=== PATIENT | male | born 1960 | race Caucasian/White ===

== ENCOUNTER 2016-10-10 05:57 | Day surgery (SDC) | payer OTHER ==
[2016-09-26 14:14] VITALS: BMI 26.6
--- NOTE | 2016-10-09 10:44 | HP ---
Satellite [facility] - Chief Complaint Chief Complaint: left knee pain - Past Medical History Allergies/Adverse Reactions: Allergies Allergy/AdvReac Type Severity Reaction Status Date / Time No Known Allergies Allergy Verified 06/15/15 08:32 - Current Medications Current Medications: Home Medications Medication Instructions Recorded Ranitidine HCl [Zantac] 1 tab PO PRN PRN 06/14/15 Valacyclovir HCl [Valtrex -] 500 mg PO PRN 06/14/15 Satellite Physical Exam - Physical Examination General Appearance: Well Nourished, Well Developed, Alert & Oriented x3 ENT: Clear Lung: Normal air movement Heart: Regular rate & rhythm Extremities: Other (left knee- + swelling, + ttp laterally, decr rom, nvi xrays show severe djd laterally) Neurological: Intact, Alert, Oriented Satellite Impression/Plan - Impression/Plan Impression: left knee lateral djd Operative Procedure: left lateral geoffrey ukr Date to be Performed: 10/10/16
[2016-10-10] MEDS ORDERED: TRANEXAMIC ACID 1000 MG/10 ML VIAL IVPUSH ONE (06:27)
[2016-10-10] MEDS ORDERED: CEFAZOLIN 2 GM in DEXTROSE 5%-WATER - 50 ML IVPB ONE (06:27)
[2016-10-10] MEDS ORDERED: ROPIVICAINE 0.2%/MORPH PF/KETOROLAC - 51ML DISP.SYRINGE IA ONE ×2 (06:27→07:28)
[2016-10-10] MEDS: oxyCODONE HCL 10 MG SUSTAINED ACTING TABLET PO ONE ×2 (06:45→20:28)
[2016-10-10] MEDS: GABAPENTIN 300 MG CAPSULE (FP) PO ONE ×2 (06:45→20:28)
[2016-10-10] MEDS: CELECOXIB 200 MG CAPSULE PO ONE ×2 (06:45→20:28)
[2016-10-10] MEDS ORDERED: ROPIVACAINE HCL 0.5% 30ML VIAL ONE (06:53)
[2016-10-10] MEDS ORDERED: DEXAMETHASONE SOD PHOSPHATE/PF 10 MG/ML SDV ONE (06:53)
[2016-10-10] MEDS ORDERED: MIDAZOLAM HCL 2 MG/2 ML SINGLE DOSE VIAL ONE ×3 (06:53→07:37)
[2016-10-10] MEDS ORDERED: ceFAZolin SODIUM 1 GM VIAL ONE ×2 (07:17→07:37)
[2016-10-10] MEDS ORDERED: VANCOMYCIN 1,000 MG VIAL (RESTRICTED TO ID ONLY) ONE (07:18)
[2016-10-10] MEDS ORDERED: THROMBIN (BOVINE) 5,000 UNIT VIAL TP ONE (07:28)
[2016-10-10] MEDS ORDERED: GELATIN, ABSORBABLE 100 EACH SPONGE TP ONE (07:28)
[2016-10-10] MEDS ORDERED: SUCCINYLCHOLINE CHLORIDE 200 MG/10 ML VIAL ONE (07:37)
[2016-10-10] MEDS ORDERED: LIDOCAINE HCL/PF 2% SDV 5ML VIAL ONE (07:37)
[2016-10-10] MEDS ORDERED: PROPOFOL 20 ML ONE ×3 (07:37→09:02)
[2016-10-10] MEDS ORDERED: ePHEDrine SULFATE 50 MG/1 ML AMPULE ONE (07:37)
[2016-10-10] MEDS ORDERED: PHENYLEPHRINE HCL 10 MG/1 ML SINGLE DOSE VIAL ONE (07:37)
[2016-10-10] MEDS ORDERED: SODIUM CHLORIDE 0.9% P/F 10 ML VIAL IJ ONE (07:38)
[2016-10-10] MEDS ORDERED: TRANEXAMIC ACID 1000 MG/10 ML VIAL ONE (07:54)
[2016-10-10] MEDS ORDERED: ONDANSETRON 4 MG/2 ML VIAL IVPB PRN (09:56)
[2016-10-10] MEDS ORDERED: MAG HYDROX/AL HYDROX/SIMETH 30 ML UNIT-DOSE CUP PO PRN (09:56)
[2016-10-10] MEDS ORDERED: LACTATED RINGERS SOLUTION 1,000 ML IV SCH (10:00)
--- NOTE | 2016-10-10 10:03 | OP ---
Operative Note - Note: Operative Date: 10/10/16 (damion) Pre-Operative Diagnosis: left knee lateral djd Operation: left lateral geoffrey ukr Post-Operative Diagnosis: Same as Pre-op Surgeon: Jf Kebede Ward Nurse: Vernon Weaver) Anesthesiologist/COOK SAUCE: Ahmet Kelly Anesthesia: Spinal, Local Specimens Removed: bone fragments Estimated Blood Loss (mls): 100 Operative Report Dictated: Yes
[2016-10-10] MEDS ORDERED: oxyCODONE HCL 5 MG TABLET PO PRN (10:25)
[2016-10-10] MEDS: ACETAMINOPHEN 1000 MG/100 ML VIAL (NON FORMULARY) IVPB ONE ×2 (10:30→20:29)
[2016-10-10] MEDS: CEFAZOLIN 2 GM/D5W 50 ML IVPB SCH (16:01)
[2016-10-10] MEDS: oxyCODONE HCL 5 MG TABLET PO PRN ×2 (16:59→21:33)
[2016-10-10] MEDS: ACETAMINOPHEN 325 MG TABLET (FP) PO SCH (18:03)
[2016-10-10] MEDS: MULTIVITAMINS (DAILY MVI) TABLET (FP) PO SCH (20:29)
[2016-10-10] MEDS: PANTOPRAZOLE 40 MG TABLET (FP) PO SCH (20:29)
[2016-10-10] MEDS: SENNOSIDES/DOCUSATE COMBO (SENNA PLUS) TABLET (UD) PO SCH ×2 (20:29→21:32)
[2016-10-10] MEDS: GABAPENTIN 300 MG CAPSULE (FP) PO SCH (21:32)
[2016-10-10] MEDS: oxyCODONE HCL 10 MG SUSTAINED ACTING TABLET PO SCH (21:32)
[2016-10-10 22:37] VITALS: TEMP 98.1
--- NOTE | 2016-10-10 23:37 | OP ---
DATE OF OPERATION: 10/10/2016 PREOPERATIVE DIAGNOSIS: Degenerative joint disease. POSTOPERATIVE DIAGNOSIS: Degenerative joint disease. PROCEDURE: Left lateral partial knee replacement with robotic assisted navigation (Makoplasty and patelloplasty). SURGEON ATTENDING: Jf Kebede M.D. TIME STUDY STATISTICIAN: Shawna Ochoa, and Vernon Weaver M.D. ANESTHESIA: Spinal and regional. CLOSURE: A 3 femur, a 3 tibia, a 9 polyethylene number 1 Vicryl fascia with 0 and 2-0 with 3-0 Monocryl subcuticular with skin glue for skin. ESTIMATED BLOOD LOSS: Less than 50 mL. COMPLICATIONS: None. CONDITION: To recovery room in stable condition. DESCRIPTION OF PROCEDURE: Patient taken to operating room on October 10, 2016. Regional and spinal anesthesia was administered by the anesthesiologist. IV Kefzol and TXA were administered prophylactically prior to the case. Well-padded pneumatic tourniquet was placed on the left proximal thigh. The left lower extremity was prepped and draped in the usual sterile fashion. Two bicortical tins were placed in the femur and in the tibia. Two small stab incisions, femoral one 1 handbreadth above the patella, and the tibial one 1 handbreadth below the tibial tubercle. Through these for the navigation device. A 6-cm incision on the lateral retinaculum of the knee was incised. Hemostasis achieved with Bovie cautery and dissection was carried down below the level of the fascia, which was undermining by medial and laterally. A lateral retinacular capsulotomy was then performed on the patella toward the tibial tubercle. Partial fat pad was excised. Superior aspect of dissection was done in the anterior lateral proximal tibia, exposing the entire lateral compartment. Check points were lateral, femoral, condyle and lateral and proximal tibia. The knee was then registered with the navigation device, with center of rotation in the hip and medial lateral malleoli and multiple points below the femur and the tibia. Excellent registration was confirmed by "popping the bubbles". The osteophytes on the lateral side were removed using a rongeur, checking the lateral ligament structures. The knee was taken through a range of motion with stressing the knee to allow correction to a neutral position with tension in lateral and collateral ligaments. This was done 30, 60, 90, and 120 degrees of flexion. The virtual looseness/tightness graph was produced. This graph was used to optimize the position of the components. Also the virtual contact points between the femur and the tibia were ascertained and again position of the components were virtually moved to optimize ideal contact points throughout. The robot was then brought into the field. The robot was registered, and it was used to bur out the bone both on the tibia and on the femur as per the plan. All residual osteophytes and cartilaginous structures and menisci were debrided. Trial components were placed with the 9 polyethylene the patient went from full extension, full flexion, excellent tracking, and good stability throughout. Osteophytes on the lateral aspect of the toe were excised, and patella was visually inspected and palpated and was found to have excellent cartilage throughout, as did the trochlea. The trial components were removed. The knee was Esmarched, the tourniquet was placed to 275 mmHg. The real components were then cemented and using cement techniques. The knee was pressurized to remove all excess cement. The knee was thoroughly inspected to remove the cement throughout. The plastic trial was removed, the knee was again thoroughly inspected, especially posteriorly, and was excised. The real 9 polyethylene liner was applied, and it was clicked into place. Range of motion and stability were described earlier. Knee was pulse antibiotic irrigated, tourniquet was deflated, digital inspection of the knee laterally to ensure good hemostasis especially the branch of the lateral geniculate was performed. The arthrotomy was then closed using number 1 Vicryl interrupted suture, 0 and 2-0 subcutaneous, and 3-0 Monocryl subcuticular skin, glue for skin, 4-0 undyed Vicryl for pin sites, Aquacel pressure dressing was applied. Patient awakened from anesthesia and transferred to recovery in stable condition with no complications, estimated blood loss was less than 50 mL. Anahi [id number]
[2016-10-11] MEDS: ACETAMINOPHEN 325 MG TABLET (FP) PO SCH ×2 (01:29→06:50)
[2016-10-11] MEDS: CEFAZOLIN 2 GM/D5W 50 ML IVPB SCH (01:29)
[2016-10-11 06:04] VITALS: BP 130/63; PULSE 59
[2016-10-11] MEDS: oxyCODONE HCL 5 MG TABLET PO PRN (06:51)
--- NOTE | 2016-10-11 07:49 | PN ---
Progress Note (short form) - Note Progress Note: Ortho Pt seen and examined s/p left lateral geoffrey ukr pod #1 Selected Entries 10/11/16 06:00 Temperature 98.1 F Pulse Rate 59 L Respiratory 19 Rate Blood Pressure 130/63 dressing c/d/i, calf soft, nt rom 0-100, nvi a/p PT dvt ppx pain control d/c home today f/u in 1 week
--- NOTE | 2016-10-11 07:50 | DS ---
Physical Examination Vital Signs: Vital Signs Temperature 98.1 F 10/11/16 06:00 Pulse Rate 59 L 10/11/16 06:00 Respiratory Rate 19 10/11/16 06:00 Blood Pressure 130/63 10/11/16 06:00 O2 Sat by Pulse Oximetry (%) 98 10/11/16 06:00 Discharge Summary Reason For Visit: OSTEOARTHRITIS Procedures: Principal: s/p left lateral geoffrey ukr Hospital Course: admitted for elective left lateral geoffrey ukr, uneventful post-op, stable for d/c Condition: Good - Instructions Diet, Activity, Other Instructions: Post-op Instructions-Partial Knee Replacement Call the office for a follow-up appointment in 1 week - [phone] Aspirin 325mg daily for 6 weeks. Pain medication was sent into your pharmacy. Apply Graduated Compression Stockings (TEDs) to both lower extremities- remove daily for hygiene ONLY Apply Sequential Compression Device (SCDs) to both Lower extremities remove for PT and hygiene ONLY Apply cold packs to affected area for 15 minutes every 2 hours. Physical Therapist will come to your home for the first 5 days. You will be set up with outpatient PT at your first post-operative visit. Patient may ambulate as tolerated-encourage self care (at least every 2-3 hours while awake) with walker or cane Maintain Aquacel (waterproof) dressing to operative wound (will be removed by surgeon at first office visit) Shower with Aquacel dressing in place-if Aquacel integrity compromised, remove and apply dry sterile dressing and notify Orthopedist. DO NOT SHOWER unless Orthopedists approves without Aquacel dressing CONTACT THE OFFICE FOR ANY CHANGE IN YOUR CONDITION (for example-fever greater than 102 degrees,excessive bleeding from operative site, purulent drainage, severe swelling or pain) GO TO THE EMERGENCY ROOM IF THERE IS A MEDICAL EMERGENCY Knee Precautions: * Keep a rolled towel under affected heel while in bed or chair (to keep knee in extension) * Keep affected leg elevated except during mealtimes * DO NOT PLACE PILLOW UNDER AFFECTED KNEE * If you have any questions, please do not hesitate to call the office - . Referrals: Vernon Weaver MD [Staff Physician] - Disposition: VNS/HOME HEALTH CARE - Home Medications Comprehensive Discharge Medication List: Ambulatory Orders Ranitidine HCl [Zantac] 1 tab PO PRN PRN 06/14/15 Valacyclovir HCl [Valtrex -] 500 mg PO PRN 06/14/15 Aspirin [ASA -] 325 mg PO DAILY@0800 tablet 10/10/16 Multivits,Ca,Min/Iron/FA/Lycop [Centrum Men's Tablet] 1 each PO DAILY 10/10/16 Oxycodone HCl/Acetaminophen [Percocet 5-325 mg Tablet -] 1 - 2 tab PO Q6H #50 tab MDD 8 10/10/16
[2016-10-11] MEDS ORDERED: ASPIRIN 325 MG TABLET PO SCH (08:00)
[2016-10-11] MEDS: PANTOPRAZOLE 40 MG TABLET (FP) PO SCH (10:02)
[2016-10-11] MEDS: GABAPENTIN 300 MG CAPSULE (FP) PO SCH (10:02)
[2016-10-11] MEDS: MULTIVITAMINS (DAILY MVI) TABLET (FP) PO SCH (10:02)
[2016-10-11] MEDS: SENNOSIDES/DOCUSATE COMBO (SENNA PLUS) TABLET (UD) PO SCH (10:02)
[2016-10-11] MEDS: oxyCODONE HCL 10 MG SUSTAINED ACTING TABLET PO SCH (10:02)
--- NOTE | 2016-10-11 10:49 | PN ---
Progress Note (short form) - Note Progress Note: S/P L partial knee replacement. PO #1 minimal Pain and no anesthesia related complaints or complicaions.
== END 2016-10-11 12:13 | disposition home health service (06) ==
LOC: FASU 05:57 → FM/S 06:27 → FASU 10-11 12:13
PROVIDERS: ATTEND Orthopaedic Surgery
PROC: 8E0YXBZ Computer Assisted Procedure of Lower Extremity (ICD-10-PCS; 2016-10-10)
PROC: 8E0Y0CZ Robotic Assisted Procedure of Lower Extremity, Open Approach (ICD-10-PCS; 2016-10-10)
PROC: 0SRD0L9 Replacement of Left Knee Joint with Medial Unicondylar Synthetic Substitute, Cemented, Open Approach (ICD-10-PCS; principal; 2016-10-10 08:34)
DX: M17.12 Unilateral primary osteoarthritis, left knee (principal)
CPT/HCPCS: 20985; 27446; C1776; S2900; 73560-TC-LT; 94010; 94760; 97116-GP; 97161

== ENCOUNTER 2018-06-21 09:02 | Day surgery (SDC) | payer OTHER ==
[2018-06-19 15:53] VITALS: BMI 26.6
[2018-06-21] MEDS ORDERED: LIDOCAINE 1%/EPI 1:100000 (20 ML MULTI DOSE VIAL) ONE (10:48)
[2018-06-21] MEDS ORDERED: BUPIVACAINE HCL/PF 0.5% (5MG/ML) 10 ML VIAL ONE (10:48)
[2018-06-21] MEDS ORDERED: MIDAZOLAM HCL 2 MG/2 ML SINGLE DOSE VIAL ONE (10:58)
[2018-06-21] MEDS ORDERED: PROPOFOL 20 ML ONE ×2 (11:03)
[2018-06-21] MEDS ORDERED: SUCCINYLCHOLINE CHLORIDE 200 MG/10 ML VIAL ONE (11:22)
--- NOTE | 2018-06-21 11:23 | HP ---
Satellite H - Chief Complaint Chief Complaint: left knee pain - Past Medical History Allergies/Adverse Reactions: Allergies Allergy/AdvReac Type Severity Reaction Status Date / Time No Known Allergies Allergy Verified 06/21/18 09:36 - Current Medications Current Medications: Home Medications Medication Instructions Recorded Acetaminophen [Tylenol Arthritis] 650 mg PO PRN PRN 06/19/18 Multivitamins [Tab-A-Vit -] 1 tab PO DAILY 06/19/18 [place]-3/Dha/Epa/Fish Oil [Fish Oil 1 each PO DAILY 06/19/18 1,000 mg Softgel] Oxycodone HCl/Acetaminophen 1 tab PO Q6H #20 tab MDD 4 06/21/18 [Percocet 5-325 mg Tablet -] Satellite Physical Exam - Physical Examination Vital Signs: Vital Signs Period Temp Pulse Resp BP Sys/Ramirez Pulse Ox Last 24 Hr 98.7 F 66 18-18 146/92 99-99 General Appearance: Well Nourished, Well Developed, Alert & Oriented x3 ENT: Clear Lung: Normal air movement Heart: Regular rate & rhythm Extremities: Other (left knee- well healed lateral incision, + swelling, + medially, decr rom, nvi MRI +mmt) Neurological: Intact, Alert, Oriented Satellite Impression/Plan - Impression/Plan Impression: left knee internal derangement s/p lateral UKR Operative Procedure: left knee arthroscopy Date to be Performed: 06/21/18
--- NOTE | 2018-06-21 11:38 | OP ---
Operative Note - Note: Operative Date: 06/21/18 (damion) Pre-Operative Diagnosis: left knee internal derangement s/p lateral ukr Operation: left knee arthroscopy with PMM Post-Operative Diagnosis: Same as Pre-op Surgeon: Vernon Weaver Anesthesiologist/DRY HEAT ROOM ATTENDANT: Conor Klein Anesthesia: General, Local Specimens Removed: shavings Estimated Blood Loss (mls): 5 Operative Report Dictated: Yes
[2018-06-21] MEDS ORDERED: oxyCODONE HCL 5 MG TABLET PO PRN (11:53)
[2018-06-21] MEDS ORDERED: ONDANSETRON 4 MG/2 ML VIAL IVPUSH PRN (11:53)
[2018-06-21] MEDS ORDERED: PROMETHAZINE HCL 25 MG/1 ML VIAL IVPUSH PRN (11:53)
[2018-06-21 14:11] VITALS: BP 113/72; PULSE 80; TEMP 97.7
--- NOTE | 2018-06-21 22:40 | OP ---
DATE OF OPERATION: 06/21/2018 PREOPERATIVE DIAGNOSIS: Left medial meniscal tear. POSTOPERATIVE DIAGNOSIS: Left medial meniscal tear. PROCEDURE: Arthroscopy, left knee with partial medial meniscectomy. SURGICAL ATTENDING: Vernon Weaver MD ANESTHESIA: General with LMA. CLOSURES: 4-0 nylon. COMPLICATIONS: None. CONDITION: To recovery room in stable condition. DESCRIPTION OF PROCEDURE: The patient was taken to the operating room on June 21, 2018. General anesthesia with LMA was administered by the anesthesiologist. IV Kefzol was administered prophylactically prior to the case (the patient already had a lateral ALFONSO). The left lower extremity was prepped and draped in the usual sterile fashion. A medial and lateral infrapatellar port site was made with a 15 blade and blunt trocar. The scope was placed in the lateral infrapatellar port up to suprapatellar pouch. The knee was insufflated with a cocktail of 10 mL of 1% Xylocaine, 10 mL of 0.5% Marcaine, and 20 mL of arthroscopic saline. After the anesthetic was allowed to work inside the knee, the procedure was performed. The pouch was visualized to be clean. The medial and lateral gutters were visualized to be clean. The undersurface of the patella and trochlea were visualized to be intact. With valgus stress on the knee, the medial compartment was entered. The medial meniscus was visualized and probed and found to have a complex tear of its posterior horn. This was debrided back to normal, stable meniscal tissue using a meniscal biter and arthroscopic shaver. The medial femoral condyle was run and found to be basically intact with some grade 1-2 changes of the medial tibial plateau. It was left in situ. At 90 degrees, the ACL was visualized and probed and found to be intact. In a figure-4 position lateral compartment was entered. The lateral ALFONSO compartments were felt to be in good position, well seated, and no evidence of any loosening or impediment. The knee was irrigated with copious amounts of irrigation. The fluid was drained, and 20 mL of 0.5% Marcaine was infused into the knee for postoperative analgesia. The port was closed with 4-0 nylon. A sterile pressure dressing was placed over the knee. The patient was awakened from anesthesia and transferred to recovery in stable condition without complications. Estimated blood loss negligible. Anahi READ/[id number]
== END 2018-06-21 13:45 | disposition home or self-care (01) ==
LOC: FASU 09:02
PROVIDERS: ATTEND Orthopaedic Surgery
PROC: 0SBD4ZZ Excision of Left Knee Joint, Percutaneous Endoscopic Approach (ICD-10-PCS; principal; 2018-06-21 11:25)
DX: S83.242A Other tear of medial meniscus, current injury, left knee, initial encounter (principal)
CPT/HCPCS: 94760